=== PATIENT | male | born 1950 | race Caucasian/White ===

== ENCOUNTER 2025-05-15 20:53 | Observation (INO) | payer MEDICARE, SELFPAY ==
--- NOTE | ~2025-05-15 | XR_ITS ---
EXAMINATION: XR CHEST 1 VIEW HISTORY: MRI screening COMPARISON: There are no prior studies available for comparison. FINDINGS: A single AP portable view of the chest performed at 8:45 AM is submitted. There is linear scarring in the left lower lobe. The lungs are otherwise clear. There is no pleural effusion, pneumothorax, or pulmonary vascular congestion. The heart is normal in size. The bones are intact. No radiopaque foreign body is identified. XR/XR chest 1V IMPRESSION: Left lower lobe scarring. Electronically signed by: Wilman Akers MD 05/16/2025 08:57 AM [facility]
--- NOTE | ~2025-05-15 | US_ITS ---
EXAMINATION: US EXTRACRANIAL CAROTID DUPLEX, BILATERAL CLINICAL INFORMATION: Change in mental status. Hypertension. TIA. COMPARISON: None available. TECHNIQUE: Real-time ultrasound and Doppler techniques (integrating B-mode 2-D vascular images, Doppler spectral analysis and color-flow Doppler imaging) were utilized to interrogate the extracranial carotid arteries, the vertebral arteries and proximal subclavian arteries bilaterally. The degree of stenosis is determined by criteria similar to NASCET. FINDINGS: Right Side: 1. There is irregular shaped moderate-sized atherosclerotic plaque seen in the bifurcation/proximal ICA region. 2. The common carotid artery PSV proximally is 82 cm/s and distally negative for cm/s. 3. The proximal internal carotid artery velocities are 116 cm/s systolic and 34 cm/s diastolic. 4. The proximal external carotid artery PSV is 98 cm/s. 5. The vertebral artery shows antegrade flow. 6. The subclavian artery waveforms are normal. ICA/CCA ratio: 1.2. Left Side: 1. There is small atherosclerotic plaque seen in the bifurcation/proximal ICA region. 2. The common carotid artery PSV proximally is 97 cm/s and distally 92 cm/s. 3. The proximal internal carotid artery velocities are 62 cm/s systolic and 14 cm/s diastolic. Tortuosity. 4. The proximal external carotid artery PSV is 98 cm/s. 5. The vertebral artery shows antegrade flow. 6. The subclavian artery waveforms are normal. ICA/CCA ratio: 0.6. US/US carotid duplex BI IMPRESSION: 1. RIGHT: Irregular shaped moderate size plaque representing 0-49% stenosis by ultrasound criteria. 2. LEFT: Small plaque representing 0-49% stenosis by ultrasound criteria. Electronically signed by: Clemente Arboleda MD 05/17/2025 06:46 AM EST
--- NOTE | ~2025-05-15 | CT_ITS ---
CLINICAL HISTORY: acute confusion CT head without contrast Comparison: None provided Findings: No intra-axial mass, midline shift, hydrocephalus, or acute hemorrhage. Parenchymal atrophy, white matter disease, and chronic appearing left thalamic lacunar infarct. There is no sinus or mastoid fluid. The orbits are within normal limits. No skull fracture. Leftward nasal septum deviation. IMPRESSION: 1. No acute intracranial findings. This document has been electronically signed by: Saravanan Ashraf MD on 05/15/2025 21:30:04
--- NOTE | 2025-05-15 20:58 | ECG_ITS ---
Test Reason : STROKE Blood Pressure : */* mmHG Vent. Rate : 99 BPM Atrial Rate : 99 BPM P-R Int : 218 ms QRS Dur : 114 ms QT Int : 344 ms P-R-T Axes : 29 -5 -1 degrees QTcB Int : 441 ms Sinus rhythm with 1st degree A-V block with Premature supraventricular complexes Right bundle branch block Abnormal ECG When compared with ECG of 28-Jul-2006 15:38, MANUAL COMPARISON REQUIRED PREVIOUS ECG IS INCOMPATIBLE Referred By: Dagoberto Fernandes Electronically Signed By: Alberto Guzmán
[2025-05-15 21:00] VITALS: BP 188/100; PULSE 70; O2SAT 98
--- NOTE | 2025-05-15 21:02 | ED_ITS ---
HPI - General Adult General Chief complaint: Stroke Stated complaint: Stroke alert Time Seen by Provider: 05/15/25 20:58 History of Present Illness ED Provider: Dena ALEXANDRE narrative: The patient is a 74-year-old male with a history of hypertension on lisinopril. He was home alone watching football when he started to feel as if something was not quite right. He thought that perhaps he was confused. He does not really remember exactly what happened but it seems as though he ultimately called an ambulance. He does not remember calling the ambulance. Paramedics arrived and found him awake and confused. He was not able to explain exactly what was happening. His was not home. His blood pressure was somewhat high but otherwise he did not seem acutely ill except that he kept asking the paramedics repetitive questions. The paramedics brought him to the hospital for further evaluation. The patient denies headache. He denies chest pain. He thinks he was home watching a football game when perhaps he started to feel that something was wrong and perhaps he called 911 but he does not really remember the specifics of this episode. Aside from denying any pain in any part of his body or any other symptoms currently he is not able to offer much additional history. The patient is retired. He worked for 30 years for the [employer]. He is and lives with his of 6 years. He has no children. His says that 2 years ago she realized that he occasionally used crack cocaine but she says that he has stopped doing this. Related Data Allergies Allergy/AdvReac Type Severity Reaction Status Date / Time Penicillins (PENICILLINS) Allergy Unknown UNKNOWN Verified 05/15/25 21:14 Review of Systems 2 Review of Systems: Yes all other systems are reviewed and are negative [facility] Social History Social History Advance Directives: No Advance Directives Information Provided: Yes Do you have a plan to hurt others: No Plan Physical Exam ED Vital Signs: Vital Signs - 24 hr 05/15/25 21:08 05/15/25 21:12 05/15/25 21:23 Temperature 97.7 F 97.7 F 97.7 F Pulse Rate 103 H 98 91 Respiratory Rate 12 14 11 L Blood Pressure 185/101 H 185/101 H 180/100 H Pulse Oximetry 98 98 98 Oxygen Delivery Method Room Air Room Air BMI result Body Mass Index 22.9 Const Other: The patient is a 74-year-old male who was awake and alert he is pleasant and cooperative. He has not appear in acute distress. [facility] Other: The face is symmetrical. ?Mucous membranes moist. Eyes General: appearance normal, both eyes and all related structures Visual Crespo: normal visual crespo by confrontation Alignment and Position: alignment normal Eyelids: Yes eyelids normal Conjunctivae: conjunctivae normal Sclerae: sclerae normal Pupils: Equal, round and reactive pupils present EOM: EOMs intact bilaterally Neck Neck: Yes normal visual inspection, Yes full ROM and Yes no JVD Resp Effort & Inspection: normal respiratory effort Auscultation: clear to auscultation bilaterally Cardio Rate: regular rate Rhythm: regular rhythm Heart sounds: S1 normal heart sound present and S2 normal heart sound present GI Other: Abdomen is soft and nontender Skin Other: The skin is dry and unremarkable Neuro Other: The patient is awake and alert, pleasant and cooperative. He is not well oriented however. He could not tell me the correct month or year or president. He does know that he has at [facility] Emergency room. He seems to have poor memory of recent events. He does not remember exactly why he came to the hospital. Pupils are round equal, extraocular movements are intact, visual crespo are intact to confrontation, the face is symmetrical, tongue is midline, speech is without aphasia or dysarthria. He has 5/5 strength in all extremities. No pronator drift. Finger-nose is normal. Gait is normal. NIH stroke scale NIH stroke scale NIH stroke scale was 1 because he could not tell me the correct month. Cranial nerves: Yes Equal, round and reactive pupils present Extrem Other: There is no calf swelling or tenderness. No asymmetry. No peripheral edema. Medications Administered Generic Name Dose Route Start Last Admin Trade Name Freq PRN Reason Stop Dose Admin Lactated Ringer's 1,000 mls @ 999 mls/hr 05/15/25 22:15 05/15/25 22:33 Lr IV 05/15/25 23:15 999 mls/hr .Q1H1M [facility] Administration Medical Decision Making Medical Decision Making [facility] Narrative: The patient is a 74-year-old male who comes to the hospital from home by ambulance. He was home alone and as far as I can tell he called the ambulance. He was watching a football game. Paramedics report that the patient seemed to have a very poor memory and was asking repetitive questions. They did not find any focal findings on their exam. My initial impression was that this seems to be a case of transient global amnesia. Nevertheless he was sent for a stat head CT that is negative. The patient does not have any focal neurological deficits aside from initially being unable to tell me the correct month. While in the emergency room he has demonstrated an inability to form new memories. At 1st he knew that he had arrived by ambulance but later he could not tell me how he got to the hospital. Additionally initially he has been very impressed that 1 of the paramedics had had a very strong [place] accident. Later he could not remember anything about the paramedics that brought him here. Since transient global amnesia is often triggered by some kind of stressful event I speculate that perhaps there was a stressful moment in the football game that triggered this. In any event the patient does not seem to have findings that I would consider typical of his stroke and I do not feel the patient is a candidate for thrombolytic therapy. Additionally it is not exactly clear at what time his symptoms began since he was alone when all of this happened and his has been out of the house for several hours. At 1st we could not reach the patient's . Eventually she responded to 1 of our messages and called the emergency room. She came to the emergency room. The patient is still showing signs of difficulty with memory. Therefore I feel the patient should be hospitalized until his memory is clearly doing better. Lab Data 05/15/25 20:55 05/15/25 20:55 Labs: Lab Results 05/15/25 05/15/25 05/15/25 Range/Units 20:55 20:56 21:30 WBC 8.5 (4.8-10.8) X10*3/uL RBC 4.67 (4.60-5.80) X10*6/uL Hgb 14.2 (14.0-18.0) g/dl Hct 40.7 L (42.0-52.0) % MCV 87.2 (80.0-98.0) fL MCH 30.4 (27.0-33.0) pg MCHC 34.9 (31.0-36.0) g/dl RDW 12.5 (11.0-16.0) % Plt Count 209 (160-400) X10*3/uL MPV 9.6 (9.4-12.4) fL Immature Gran % (Auto) 0.2 (0.0-0.4) % Neut % (Auto) 80.5 H (45-73) % Lymph % (Auto) 13.4 L (20-40) % [place] % (Auto) 5.3 (2-11) % Eos % (Auto) 0.2 (0-4) % Baso % (Auto) 0.4 (0-2) % Lymph # (Auto) 1.1 L (1.2-4.9) X10*3/uL [place] # (Auto) 0.5 (0.1-1.2) X10*3/uL Eos # (Auto) 0.0 (0.0-0.4) X10*3/uL Baso # (Auto) 0.0 (0.0-0.2) X10*3/uL Abs Immat Gran (auto) 0.02 (0.00-0.03) X10*3/uL Absolute Neuts (auto) 6.9 (2.0-8.3) x10*3/uL Absolute Nucleated RBC 0.000 (0.0-0.012) X10*3/uL Nucleated RBC % (auto) 0.0 (0.0-0.2) /100WBC PT 11.8 (10.9-12.4) SEC INR 1.0 (0.9-1.1) Sodium 140 (135-145) mmol/L Potassium 4.1 (3.3-5.1) mmol/L Chloride 111 H (96-108) mmol/L Carbon Dioxide 19 L (22-29) mmol/L Anion Gap 14 (12-20) BUN 23 H (9-16) mg/dL Creatinine 1.16 (0.5-1.4) mg/dL Estim Creat Clear Calc 60.6 Estimated GFR > 60 POC Glucose 100 (60-115) mg/dL Random Glucose 107 (60-115) mg/dL Calcium 8.9 (8.4-10.2) mg/dL Troponin I High Sens < 2.7 (<3.5-35.0) ng/L Triglycerides 68 (<150) mg/dL Cholesterol 186 (<200) mg/dL LDL Cholesterol, Calc 119 H (<100) mg/dL HDL Cholesterol 54 (>40) mg/dL Ethyl Alcohol < 10 mg/dL Critical Care Time Critical Care Time Critical Care Time: Yes Total Critical Care Time: 35 Attestation: The patient was critically ill with a high probability of imminent or life- threatening deterioration. ?I spent greater than 30 minutes of discontinuous time evaluating the patient, delivering critical care at the bedside, discussing evaluating data with consultants. ?Critical care time does not include time spent performing separately billable procedures or teaching. ?Time spent performing critical care with 35 minutes. Discharge Plan Discharge Clinical Impression: Transient global amnesia Patient Disposition: Admitted As Inpatient Print Language: Mosotho
--- NOTE | 2025-05-15 21:02 | PC.NURSE ---
2053 Pt arrives by EMS. at bedside for eval. 2054 PTT and labs obtained. [address] after MD eval. 2102 CT complete, pt moved to bed 9 for triage.
[2025-05-15 21:04] LABS: Glucose, Whole Blood 100 mg/dL (60-115)
[2025-05-15 21:08] VITALS: BP 185/101; PULSE 103; RESP 12; TEMP 36.5; O2SAT 98; BMI 22.9
[2025-05-15 21:08] LABS: MANUAL DIFF FLAG NO
[2025-05-15 21:10] LABS: Hematocrit 40.7 % (42.0-52.0); Hemoglobin 14.2 g/dl (14.0-18.0); Imm Gran Abs Auto 0.02 X10*3/uL (0.00-0.03); Imm Gran Pct Auto 0.2 % (0.0-0.4); Lymphocytes Absolute Auto 1.1 X10*3/uL (1.2-4.9); Mean Corpuscular HGB Conc 34.9 g/dl (31.0-36.0); Mean Corpuscular Hemoglobin 30.4 pg (27.0-33.0); Mean Corpuscular Volume 87.2 fL (80.0-98.0); NRBC Abs Auto 0.000 X10*3/uL (0.0-0.012); NRBC Pct Auto 0.0 /100WBC (0.0-0.2); Platelet Count 209 X10*3/uL (160-400); Red Blood Count 4.67 X10*6/uL (4.60-5.80); White Blood Count 8.5 X10*3/uL (4.8-10.8)
--- NOTE | 2025-05-15 21:10 | PC.NURSE ---
returned from CT alert and talking at this time
[2025-05-15 21:12] VITALS: BP 185/101; PULSE 98; RESP 14; TEMP 36.5; O2SAT 98; BMI 22.9
[2025-05-15 21:23] VITALS: BP 180/100; PULSE 91; RESP 11; TEMP 36.5; O2SAT 98
[2025-05-15 21:30] LABS: Anion Gap 14 (12-20); Blood Urea Nitrogen 23 mg/dL (9-16); Calcium 8.9 mg/dL (8.4-10.2); Carbon Dioxide 19 mmol/L (22-29); Chloride 111 mmol/L (96-108); Cholesterol 186 mg/dL (<200); Creatinine Clr Calc Pharmacy 60.6; Estimated Glomerular Filt Rate > 60; HDL Cholesterol 54 mg/dL (>40); Potassium 4.1 mmol/L (3.3-5.1); Sodium 140 mmol/L (135-145); Triglycerides 68 mg/dL (<150)
[2025-05-15 21:44] LABS: INTERNATIONAL NORM RATIO 1.0 (0.9-1.1); Prothrombin Time 11.8 SEC (10.9-12.4)
[2025-05-15 21:45] LABS: Troponin-I High Sensitivity < 2.7 ng/L (<3.5-35.0)
[2025-05-15 21:54] LABS: Stroke Lab Use COMPLETE
--- OUTSIDE RECORDS SUMMARY | 2025-05-15 22:00 | XMS_ITS | Clinical Summary ---
Author Organization [facility], Address [address] [place] [address] Phone Care Team Providers Care Store Management Trainee Name Role Phone Nabor Alonso MD Primary Care Provider [phone] Allergies Active Allergy Reactions Criticality Noted Date Comments Penicillins 10/23/2020 Medications Omeprazole 20 MG tablet delayed-release Comments: Filled Date: May 14 2017 12:00AM Patient Notes: TAKE ONE CAPSULE BY MOUTH EVERY DAY *INSURANCE COVERS 21 FOR 21 Duration: 21 7 Active cholecalciferol (VITAMIN D-3) 1.25 MG (77319 UT) capsule Take 50,000 Units by mouth every 28 (twenty-eight) days Active valACYclovir (VALTREX) 1 g tablet Take 1,000 mg by mouth 2 (two) times a day if needed (x 3 days for herpetic outbreak) Active sildenafil (VIAGRA) 50 MG tablet Take 50 mg by mouth 1 (one) time each day if needed for erectile dysfunction Active lisinopril 5 MG tablet TAKE 1 TABLET BY MOUTH DAILY 90 tablet 3 4 Active ergocalciferol (Drisdol) 1.25 MG (31257 UT) capsule Take 1 capsule (50,000 Units total) by mouth 1 (one) time per week 4 capsule 5 5 Active ergocalciferol 1.25 MG (23078 UT) capsule Take 1 capsule (50,000 Units total) by mouth 1 (one) time per week 12 capsule 3 5 03/15/20 26 Active Active Problems Problem Noted Date Diagnosed Date Vitamin D deficiency, not otherwise specified Creatine kinase level above reference range 08/15 Renal osteodystrophy 05/08/2021 Stage 3a chronic kidney disease 04/25/2020 Overview (07/17/2020): Update for Diagnosis Load Cyst of kidney 10/21/2019 Hypertensive disorder 10/18/2019 Resolved Problems Problem Noted Date Diagnosed Date Resolved Date 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 05/08/2021 Polycystic kidney disease, adult type 10/18/2019 05/08/2021 Encounters Date Type Department Care Team Description 04/05/2025 2:00 PM EDT Office Visit [facility] [address] [place] [id number] Jose Dickinson MD Stage 3a chronic kidney disease (HCC) (Primary Dx); Hypertensive disorder; Vitamin D deficiency, not otherwise specified 03/18/2025 Orders Only [facility] [address] [place] [phone] Tisha Bush Vitamin D deficiency, not otherwise specified (Primary Dx); Stage 3a chronic kidney disease (HCC) 03/15/2025 Refill [facility] [address] [place] [address] Jose Dickinson MD from Last 3 Months Immunizations Immunization Administration Dates Next Due Influenza, Unspecified 06/25/2021,2019,05/27/2018,04/25/2017 ,07/13/2015,07/03/2014 Pfizer SARS-COV-2 06/04/2021,10/22/2020,10/02/19 21 Pneumococcal Conjugate 13-Valent 08/26/2017 Pneumococcal Polysaccharide 06/25/2021, 3 Tdap 02/09/2013,02/01/2011 Tetanus Toxoid, Unspecified 07/14/2001 Family History Medical History Relation Comments Kidney disease Father cousin Hypertension Mother grandfather Stroke Mother grandfather Relation Status Comments Father Mother Social History Tobacco Use Types Packs/Day Years Used Date Smoking Tobacco: Every Day Cigarettes Alcohol Use Standard Drinks/Week Comments Yes 0 (1 standard drink = 0.6 oz pure alcohol) Alcoholic Drinks/day: Occasional social drink Sex and Gender Information Value Date Recorded Sex Assigned at Not on file Legal Sex Male 4:34 PM EST Gender Identity Not on file Sexual Orientation Not on file Last Filed Vital Signs Vital Sign Reading Time Taken Comments Blood Pressure 110/65 04/20/2019 12:00 PM EDT Pulse 74 04/20/2019 12:00 PM EDT Temperature - - Respiratory Rate 16 04/20/2019 12:00 PM EDT Oxygen Saturation - - Inhaled Oxygen Concentration - - Weight 90.3 kg (199 lb) 04/20/2019 12:00 PM EDT Height 180.3 cm (5' 11 ) 04/20/2019 12:00 PM EDT Body Mass Index 27.75 04/20/2019 12:00 PM EDT Plan of Treatment Upcoming Encounters Date Type Department Care Team (Late st Contact Info) Description 10/04/2025 2:00 PM EDT Office Visit [facility] [place] [facility] [address] [place] [address] Jose Dickinson MD [address] [place] [phone] Health Maintenance Due Date Last Done Comments Colorectal Cancer Screening: Annual FOBT 2001 Colorectal Cancer Screening: Colonoscopy 2001 Colorectal Cancer Screening: Sigmoidoscopy 2001 Influenza Vaccine (#1) 2025 , 05/23/2020, 05/27/2018, Additional history exists Pneumococcal Vaccine: 50+ Years Completed 06/25/2021, 08/26/2017, 02/09/2013 Pneumococcal Vaccine: Peds (0 to 5 Years) and At-Risk Patients (6 to 49 Years) Discontinued 06/25/2021, 08/26/2017, 02/09/2013 Hepatitis B Vaccine Aged Out No longe r eligible based on patient's age to complete this topic Procedures Procedure Name Priority Date/Time Associated Diagnosis Comments VITAMIN D 25 HYDROXY Routine 03/30/2025 7:42 AM EDT Vitamin D deficiency, not otherwise specified PROTEIN / CREATININE RATIO, URINE Routine 03/30/2025 7:42 AM EDT Stage 3a chronic kidney disease (HCC) URINALYSIS WITH MICROSCOPIC Routine 03/30/2025 7:42 AM EDT Stage 3a chronic kidney disease (HCC) RENAL FUNCTION PANEL Routine 03/30/2025 7:42 AM EDT Stage 3a chronic kidney disease (HCC) CBC AND DIFFERENTIAL Routine 03/30/2025 7:42 AM EDT Stage 3a chronic kidney disease (HCC) MICROSCOPIC EXAMINATION - DO NOT USE Routine 03/30/2025 7:42 AM EDT from Last 3 Months Results * Microscopic Examination (03/30/2025 7:42 AM EDT) WBC, Urine None seen 0 - 5 /hpf [facility] RBC, Urine None seen 0 - 2 /hpf [facility] Squamous Epithelial, Urine None seen 0 - 10 /hpf [facility] Casts None seen None seen /lpf [facility] Bacteria, Urine None seen None seen/Few [facility] 03/30/2025 7:42 AM EDT 03/30/2025 us Jose Dickinson MD LAB MICROBIOLOGY - GENERAL ORDER ISMAEL Final Result [facility] [address] [place] [address] * Urine Protein / creatinine ratio (03/30/2025 7:42 AM EDT) Creatinine, Ur 100.5 Not Estab. mg/dL [facility] Protein, Ur 9.6 Not Estab. mg/dL [facility] Urine Protein/Creatin ine Ratio 96 0 - 200 mg/g creat [facility] Urine Urine specimen obtained by clean catch procedure / Unknown 03/30/2025 7:42 AM EDT 03/30/2025 us Jose Dickinson MD LAB URINE ORDERABLES Final Resul t Performing Organization Address City/[facility]/ZIP Co de Phone Number [facility] [address] [place] [address] * Vitamin D 25 hydroxy (03/30/2025 7:42 AM EDT) Vitamin D, 25-OH, Total 59.2 30.0 - 100.0 ng/mL [facility] Comment: Vitamin D deficiency has been defined by the [place] of Medicine and an Endocrine Society practice guideline as a level of serum 25-OH vitamin D less than 20 ng/mL (1,2). The Endocrine Society went on to further define vitamin D insufficiency as a level between 21 and 29 ng/mL (2). 1. IOM ([place] of Medicine). 2010. Dietary reference intakes for calcium and D. [place]: The National Academies Press. 2. Mary Anne MF, [place], Xu HYDE, et al. Evaluation, treatment, and prevention of vitamin D deficiency: an Endocrine Society clinical practice guideline. JCEM. 2010; 96(7):1911-30. Blood Venous blood / Unknown 03/30/2025 7:42 AM EDT 03/30/2025 us Jose Dickinson MD LAB BLOOD ORDERABLES Final Resul t [facility] [address] [place] [address] * Urinalysis with microscopic (03/30/2025 7:42 AM EDT) Specific [place], Urine 1.017 1.005 - 1.030 [facility] [phone] pH Urine 6.0 5.0 - 7.5 [facility] Color, Urine Yellow Yellow [facility] [phone] Appearance Urine Clear Clear [facility] WBC Esterase Urine Negative Negative [facility] Protein, Ur Negative Negative/Tra ce [facility] Glucose, Ur Negative Negative [facility] Ketones, Urine Negative Negative [facility] Blood Urine Negative Negative [facility] Bilirubin Urine Negative Negative [facility] Urobilinogen Urine 0.2 0.2 - 1.0 mg/dL [facility] [phone] Nitrite, Urine Negative Negative [facility] [phone] Microscopic Examination Comment [facility] Comment:Microscopic follows if indicated. Other Microsc. Observations See below: [facility] Comment:Microscopic was elo cated and was performed. Urine Urine specimen obtained by clean catch procedure / Unknown 03/30/2025 7:42 AM EDT 03/30/2025 us Jose Dickinson MD LAB URINE ORDERABLES Final Resul t [facility] [address] [place] [address] * CBC and differential (03/30/2025 7:42 AM EDT) WBC 5.3 3.4 - 10.8 x10E3/uL [facility] RBC 4.82 4.14 - 5.80 x10E6/uL [facility] Hemoglobin 14.9 13.0 - 17.7 g/dL [facility] Hematocrit 44.8 37.5 - 51.0 % [facility] MCV 93 79 - 97 fL [facility] MCH 30.9 26.6 - 33.0 pg [facility] MCHC 33.3 31.5 - 35.7 g/dL [facility] RDW 13.1 11.6 - 15.4 % [facility] Platelets 230 150 - 450 x10E3/uL [facility] Neutrophils Relative 65 Not Estab. % [facility] Lymphocytes Relative 25 Not Estab. % [facility] Monocytes 7 Not Estab. % [facility] Eosinophils Relative 2 Not Estab. % [facility] Basophils Relative 1 Not Estab. % [facility] Neutrophils Absolute 3.5 1.4 - 7.0 x10E3/uL [facility] Lymphocytes Absolute 1.3 0.7 - 3.1 x10E3/uL [facility] Monocytes Absolute 0.4 0.1 - 0.9 x10E3/uL [facility] Eosinophils Absolute 0.1 0.0 - 0.4 x10E3/uL [facility] Basophils Absolute 0.0 0.0 - 0.2 x10E3/uL [facility] Immature Granulocytes 0 Not Estab. % [facility] Immature Grans (Absolute) 0.0 0.0 - 0.1 x10E3/uL [facility] Blood Venous blood / Unknown 03/30/2025 7:42 AM EDT 03/30/2025 us Jose Dickinson MD LAB BLOOD ORDERABLES Final Resul t [facility] [address] [place] [address] * Renal function panel (03/30/2025 7:42 AM EDT) Glucose 83 70 - 99 mg/dL [facility] BUN 20 8 - 27 mg/dL [facility] Creatinine 1.17 0.76 - 1.27 mg/dL [facility] eGFR CKD-EPI CR 2020 66 >59 mL/min/1.7 3 [facility] BUN/Creatinine Ratio 17 10 - 24 [facility] Sodium 139 134 - 144 mmol/L [facility] Potassium 4.2 3.5 - 5.2 mmol/L [facility] Chloride 102 96 - 106 mmol/L [facility] Bicarbonate (CO2) 20 20 - 29 mmol/L [facility] Calcium 9.1 8.6 - 10.2 mg/dL [facility] Albumin 4.5 3.8 - 4.8 g/dL [facility] Phosphorus 3.4 2.8 - 4.1 mg/dL [facility] Blood Venous blood / Unknown 03/30/2025 7:42 AM EDT 03/30/2025 us Jose Dickinson MD LAB BLOOD ORDERABLES Final Resul t [facility] [address] [place] [address] from Last 3 Months Insurance Medicare RR Care Teams Store Management Trainee Relationship Specialty Start Date End Date Nabor Alonso MD LIZETH BIGGS INSTRUMENT AND ELECTRICAL TECHNICIAN [address] [place] [address] LIZETH BIGGS [place] PCP - General 05/18/19
--- OUTSIDE RECORDS SUMMARY | 2025-05-15 22:00 | XMS_ITS | Encounter Summary ---
Author Organization [facility] Address [address] [place] [address] Phone Care Team Providers Care Geophysical Party Chief Name Role Phone Nabor Alonso MD Primary Care Provider [phone] Encounter Details Date Type Department Care Team (Late Contact Info) Description 10/04/2024 Documentation Only [facility] [address] [place] [address] Elyssa Bolivar [address] [place] [phone] Social History Tobacco Use Types Packs/Day Years Used Date Smoking Tobacco: Every Day Cigarettes Alcohol Use Standard Drinks/Week Comments Yes 0 (1 standard drink = 0.6 oz pure alcohol) Alcoholic Drinks/day: Occasional social drink Sex and Gender Information Value Date Recorded Sex Assigned at Not on file Legal Sex Male 4:34 PM EST Gender Identity Not on file Sexual Orientation Not on file documented as of this encounter Plan of Treatment Upcoming Encounters Date Type Department Care Team (Late st Contact Info) Description 10/04/2025 2:00 PM EDT Office Visit [facility] [address] [address] Jose Dickinson MD [address] [place] [address] [place] [address] documented as of this encounter Visit Diagnoses Not on filedocumented in this encounter Care Teams Geophysical Party Chief Relationship Specialty Start Date End Date Nabor Alonso MD [employer] TECHNICIAN [address] [place] [address] [place] [address] PCP - General 05/18/19 documented as of this encounter
--- OUTSIDE RECORDS SUMMARY | 2025-05-15 22:00 | XMS_ITS | Encounter Summary ---
Author Organization [facility] Address [address] [place] [address] Phone Care Team Providers Care Bed And Breakfast Operator Name Role Phone Nabor Alonso MD Primary Care Provider [phone] Encounter Details Date Type Department Care Team (Late Contact Info) Description 10/04/2024 Documentation Only [facility] [address] [place] [address] Elyssa Bolivar [address] [place] [phone] Social History Tobacco Use Types Packs/Day [...] Office Visit [facility] [address] [address] Jose Dickinson MD [address] [place] [address] [place] [address] documented as of this encounter Visit Diagnoses Not on filedocumented in this encounter Care Teams Bed And Breakfast Operator Relationship Specialty Start Date End Date Nabor Alonso MD [employer] DEVELOPER [address] [place] [address] [place] [address] PCP - General 05/18/19 documented as of this encounter
--- OUTSIDE RECORDS SUMMARY | 2025-05-15 22:00 | XMS_ITS | Encounter Summary ---
Author Organization [facility] Address [address] [place] [address] Phone Care Team Providers Care Etcher Printed Circuit Boards Name Role Phone Nabor Alonso MD Primary Care Provider [phone] Encounter Details Date Type Department Care Team (Late Contact Info) Description 10/04/2024 Documentation Only [facility] [address] [place] [address] Elyssa Bolivar [address] [place] [id number] Social History Tobacco Use Types Packs/Day [...] Office Visit [facility] [address] [address] Jose Dickinson MD [address] [place] [address] [place] [address] documented as of this encounter Visit Diagnoses Not on filedocumented in this encounter Care Teams Etcher Printed Circuit Boards Relationship Specialty Start Date End Date Nabor Alonso MD [facility] [address] [place] [address] [place] [address] PCP - General 05/18/19 documented as of this encounter
--- OUTSIDE RECORDS SUMMARY | 2025-05-15 22:00 | XMS_ITS | Data Portability ---
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 Examination of the oropharynx demonstrates pink moist mucosa without erythema, exudate, tonsillar enlargement or mass. Given the patient's history of GERD and Combs's esophagus, patient's cough and dry throat likely due to LPR. Recommended trialling an increased dose of Omeprazole 40mg and if symptoms are relieved, discussed continuing to follow up with GI. Patient will follow up in office in 2 months. franky Not available 04/06/2025 14:25:00 Plan of Treatment Reminders Order Date Submit Date Provider Last Modified By Organization Details Last Modified Time Details Appointments New Patient 30 2024 01:15P Deo HADLEY PA-C Not available Not available Not available Lab None recorded. Referral None recorded. Procedures None recorded. Surgeries None recorded. Imaging None recorded. Medication Orders omeprazol e 40 mg capsule,d elayed release 2024 025 [facility] [id number], [address] [place] [address], [address], 04/06/2025 14:25:41 Patient TargetsNo targets recorded. Patient InstructionsNo instructions recorded. Reason for Referral None Reported. Problems Name Problem SNOMED Code Status Onset Date Resolution Date Notes Provider Name and Address Organization Details Recorded Time Gastroesophage al reflux disease without esophagitis 128747174 Active 2024 SALONI HADLEY PA-C [address] [place] [address], [phone] [place] [address] [facility] 14:25:12 Problem Notes None recorded. Medical Equipment None Reported. Medications Name Sig Start Date Stop Date Status Note LastModified by Organization Details LastModified Time valacyclovir 1 gram tablet TAKE 1 TABLET BY MOUTH TWICE DAILY FOR 3 DAYS NEEDED FOR OUTBREAKS active Not Available Not Available No t Available omeprazole 40 mg capsule,delay ed release 1 capsule daily 1 hour before first meal 2024 active Not Available Not Available Not Avai lable Vitals Date Recorded Body height Body mass index (BMI) Body weight Provider Name and Address Organization Details Last Updated DateTime 04/06/2025 180.34 cm 22.3 kg/m2 67209.78 g Petra Birmingham [facility] 04/06/2025 13:40:45 Social History None recorded. Functional Status None recorded. Mental Status None recorded. Family History Nothing Reported. Medical History No medical history recorded. Past Encounters Encounter ID Performer Location Encounter Start Date Encounter Closed Date Diagnosis/Indication Diagnosis SNOMED-CT Code Diagnosis ICD10 Code Diagnosis IMO Codes Diagnosis Note [id number] SALONI HADLEY PA-C [facility] [address] [address] 04/06/2025 13:28:50 04/06/2025 14:06:15 Gastroesophageal reflux disease without esophagitis 284650484 K21.9 [id number] Health Concerns Section Related Observation LastModified by Organization Detai ls LastModified Time None Recorded Concern Status LastModified by Organization Details LastModified Time None Recorded Advance Directives Directive None Recorded Payers Insurance Date Sequence Insurance Name Policy Number Policy Abdi Covered Member ID Abdi Member ID Guarantor Name 04/06/2025 Maria Del Rosario [employer] - MEDICARE-[address] LONG TERM BOARD (MEDICARE) Lico Munoz [id number] Lico Munoz Notes Date Note Type Note Provider Name and Address Organization Details Recorded Time 04/06/2025 text/html ROS as noted in the HPI 74 year old male with a history of GERD and Combs's esophagus presents for evaluation of a dry cough. He reports it has been 3 years and has recently gotten worse. States he has to cough when eating powdery or grainy foods and his throat feels irritated when drinking cold liquids. Denies odynophagia, dysphagia, mass sensation, or unintentional weight loss. He takes Omeprazole 20mg daily and denies recent reflux symptoms, only when he misses his dose. Patient underwent an upper endoscopy recently and was diagnosed with Combs's esophagus, and has a follow up endoscopy next year. Distant history of tobacco use but quit 25 years ago. SALONI HADLEY PA-C 100 [facility] [address], [place], [address], [place] [facility] 04/06/2025 14:25:48
--- OUTSIDE RECORDS SUMMARY | 2025-05-15 22:00 | XMS_ITS | Encounter Summary ---
Author Organization [facility] Address [address] [place] [address] Phone Care Team Providers Care Supervisor Cell Efficiency Name Role Phone Nabor Alonso MD Primary Care Provider [phone] Encounter Details Date Type Department Care Team (Late st Contact Info) Description 09/04/2022 Documentation Only [facility] [address] [place] [address] Jose Dickinson MD [address] [place] [address] [place] [address] Social History Tobacco Use Types Packs/Day Years [...] Office Visit [facility] [address] [place] [address] Jose Dickinson MD [address] [place] [address] [place] [address] documented as of this encounter Visit Diagnoses Not on filedocumented in this encounter Care Teams Supervisor Cell Efficiency Relationship Specialty Start Date End Date Nabor Alonso MD [employer] CHEMICAL TECHNICIAN [address] [place] [address] [place] PCP - General 05/18/19 documented as of this encounter
[2025-05-15] MEDS: Lactated Ringers 1,000 ML 999 ML IV (22:33)
--- NOTE | 2025-05-15 23:15 | PM.IMHP ---
History of Present Illness Date of Service: 05/15/25 Attending physician on admission: Jeane Donald Chief Complaint: osmar De Dios is a 74 yo male with a pmhx significant for HTN on lisinopril, who presented to the ED for an unknown reason. the pt reports that he was stressed watching football game and suddenly felt like something was wrong blood can not describe what it was. He denies any chest pain, shortness of breath, nausea, vomiting, headache, weakness, fever, chills, urinary symptoms or abdominal symptoms. When EMS arrived his blood pressure was slightly elevated and he was repetitive and forgetful. The patient remains forgetful and repetitive. The patient's reports that he is talking much more quickly than usual but does not have any slurred speech. She also reported that he has a history of crack cocaine use, none recently to her knowledge. He also drinks alcohol occasionally but has not consumed any today. His mother and brother have a strong history of TIAs and CVAs, both passed after CVAs. Review of Systems Constitutional: Constitutional: Denies body ache(s), Denies chills, Denies fatigue, Denies fever(s) and Denies headache(s) Eyes: Eyes: Denies change in vision ENT: Denies headache(s), Denies nasal congestion and Denies sore throat Cardiovascular: Cardiovascular: Denies chest pain, Denies rapid heart rate, Denies leg edema, Denies lightheadedness and Denies dyspnea Respiratory: Respiratory: Denies chest congestion, Denies cough, Denies dyspnea and Denies wheezing Gastrointestinal: Gastrointestinal: Denies abdominal pain, Denies nausea and Denies vomiting Genitourinary: Genitourinary: Denies dysuria, Denies urinary frequency and Denies urinary urgency Musculoskeletal: Musculoskeletal: Denies back pain and Denies myalgias Integumentary/Breasts: Skin/Breast: Denies rash Neurologic: Reports as per HPI and Denies headache(s) Psychiatric: Psychiatric: Reports as per HPI Endocrine: Endocrine: Denies fatigue Hematologic/Lymphatic: Hematologic/Lymphatic: Denies easy bleeding and Denies easy bruising Allergic/Immunologic: Allergic/Immunologic: Denies wheezing [facility] Medical History (Updated 05/16/25 @ 00:42 by Holly Roth PA-C) HTN (hypertension) Functional capacity: independent ambulation Social History Advance Directives: No Advance Directives Information Provided: Yes Do you have a plan to hurt others: No Plan Narrative: Social occasional alcohol, no smoking. History of crack cocaine use Meds Allergies Allergy/AdvReac Type Severity Reaction Status Date / Time Penicillins (PENICILLINS) Allergy Unknown UNKNOWN Verified 05/15/25 21:14 Active Medications: Current Medications Lactated Ringer's (Lr) 1,000 mls @ 999 mls/hr IV .Q1H1M NUVIA Stop: 05/15/25 23:15 Last Admin: 05/15/25 22:33 Dose: 999 mls/hr Physical Exam Vital Signs and Narrative: Vital Signs: Last Vital Signs Temp 97.7 F 05/15/25 21:23 Pulse 91 05/15/25 21:23 Resp 11 L 05/15/25 21:23 BP 180/100 H 05/15/25 21:23 Pulse Ox 98 05/15/25 21:23 O2 Del Method Room Air 05/15/25 21:23 BMI result Body Mass Index 22.9 General: AOx3, no acute distress. repetitive, ?slurred speech (baseline per ) Resp: CTA bilaterally CVS: S1, S2, RRR GI: +BS, NT, no distention Skin: Warm, dry Neuro: Cranial nerves II-XII grossly intact bilaterally. Motor grossly intact bilaterally. Sensation and strength intact bilateral upper and lower extremities equally. ?tongue deviates left Extremities: No pitting edema Psych: Appropriate affect Results Labs 05/15/25 20:55 05/15/25 20:55 Labs: Laboratory Results - last 24 hr 05/15/25 05/15/25 05/15/25 20:55 20:56 21:30 MCV 87.2 MCH 30.4 MCHC 34.9 RDW 12.5 Plt Count 209 MPV 9.6 Immature Gran % (Auto) 0.2 Neut % (Auto) 80.5 H Lymph % (Auto) 13.4 L [place] % (Auto) 5.3 Eos % (Auto) 0.2 Baso % (Auto) 0.4 Lymph # (Auto) 1.1 L [place] # (Auto) 0.5 Eos # (Auto) 0.0 Baso # (Auto) 0.0 Abs Immat Gran (auto) 0.02 Absolute Neuts (auto) 6.9 Absolute Nucleated RBC 0.000 Nucleated RBC % (auto) 0.0 PT 11.8 INR 1.0 Anion Gap 14 Estim Creat Clear Calc 60.6 Estimated GFR > 60 POC Glucose 100 Random Glucose 107 Calcium 8.9 Troponin I High Sens < 2.7 Triglycerides 68 Cholesterol 186 LDL Cholesterol, Calc 119 H HDL Cholesterol 54 Ethyl Alcohol < 10 Assessment and Plan (1) Transient global amnesia: Status: Acute Plan Pt is a 74 yo male with a pmhx significant for HTN on lisinopril, who presented to the ED for an unknown reason. pt is experiencing amnesia Transient global amnesia versus TIA versus CVA versus seizure - MRI brain with IV contrast - echo with bubble study - tele - LDL elevated, appreciate neuro input on statin - start ASA 81mg daily - EEG - neuro consult HTN - lisinopril med rec pending full code VTE prophy: lovenox pt with transient global amnesia vs TIA vs CVA vs seizure, requiring admission for observation, further evaluation and neuro consult. Quality Stroke Does the patient have a stroke diagnosis?: No VTE Prior VTE?: No VTE Risk Level:: Medical - moderate - high VTE Device Contraindication: Treatment Not Indicated VTE Drug Contraindication: N/A - Med Ordered
[2025-05-15 23:45] LABS: Appearance Urine Clear; Glucose Urine UA Negative (Negative); PH 5.5 (5.0-9.0); Specific Gravity - Urine 1.010 (1.005-1.025)
[2025-05-16] VITALS (8 sets, daily range): BP systolic 136–165; BP diastolic 73–91; PULSE 60–109; RESP 16–18; TEMP 36.6–37.2; O2SAT 94–98; BMI 22.7; BMI 22.8
--- NOTE | 2025-05-16 | EEG_ITS ---
Reason for Exam: Amnesia, confusion Roomed Performed: 1 st floor - [facility] History: History from consult note 74 years old man with hypertension in usual state of felt watching a game on television when he started feeling different. He said that it was foggy and dizzy and then something happened. After that his memory was fuzzy, he could remember some like talking to someone in the ambulance. Finally, when he felt normal he was in hospital. There was no report of any seizure or focal weakness. He denied any headache. He denied taking any new medicine or chemical or alcohol. Something like this has not happened before. His initial blood pressure was high in his head CT did not reveal any acute abnormality. There was no significant metabolic abnormality to explain his situation. Now he was feeling back to normal. There was no history of any significant headaches. Medication: Acetaminophen, ASA, Calcium, Enoxaparin sodium, magnesium hydroxide, melatonin, ondansetron, oxycodone, tramadol Technical description: Photic stimulation: completed Hyperventilation: omitted Behavioral state: pleasant, cooperative, aware of his surroundings and able to carry on conversation State of Consciousness: awake with brief drowsy Skull defect: no Sedation: no Handedness: Right Duration of study: 26 min 05 sec Description: This is a 16 channel EEG with an EKG lead. Patient is reported awake and drowsy during the tracing. Background EEG rhythm is 10-12 hertz 5-100 microvolt posteriorly and lower amplitude fast anteriorly. Photic stimulation produced a brief period of generalized slowing. No sharp waves or spikes were noted. No significant driving was noted. Hyperventilation was not performed. Cardiac lead did not reveal any significant abnormality. No definite sharp wave spikes or paroxysmal tendency noted. Impression: No significant abnormality noted on this EEG. JODI
[2025-05-16 00:08] LABS: Cannabinoid Screen Urine Not Detected (Not Detect)
[2025-05-16 03:51] LABS: MANUAL DIFF FLAG NO
[2025-05-16 03:52] LABS: Hematocrit 38.1 % (42.0-52.0); Hemoglobin 13.1 g/dl (14.0-18.0); Imm Gran Abs Auto 0.02 X10*3/uL (0.00-0.03); Imm Gran Pct Auto 0.3 % (0.0-0.4); Lymphocytes Absolute Auto 1.4 X10*3/uL (1.2-4.9); Mean Corpuscular HGB Conc 34.4 g/dl (31.0-36.0); Mean Corpuscular Hemoglobin 29.9 pg (27.0-33.0); Mean Corpuscular Volume 87.0 fL (80.0-98.0); NRBC Abs Auto 0.000 X10*3/uL (0.0-0.012); NRBC Pct Auto 0.0 /100WBC (0.0-0.2); Platelet Count 202 X10*3/uL (160-400); Red Blood Count 4.38 X10*6/uL (4.60-5.80); White Blood Count 6.2 X10*3/uL (4.8-10.8)
[2025-05-16 04:14] LABS: Anion Gap 11 (12-20); Blood Urea Nitrogen 19 mg/dL (9-16); Calcium 8.7 mg/dL (8.4-10.2); Carbon Dioxide 24 mmol/L (22-29); Chloride 110 mmol/L (96-108); Creatinine Clr Calc Pharmacy 70.3; Estimated Glomerular Filt Rate > 60; Potassium 4.2 mmol/L (3.3-5.1); Sodium 141 mmol/L (135-145)
--- NOTE | 2025-05-16 07:00 | CA_ITS ---
Transthoracic Echocardiogram Patient (Last, First, Middle): Lico Vanegas P Gender: Male Date of : 1950 Age: 74 Procedure Date: 05/16/2025 Procedure Type: Transthoracic Echocardiogram Location: ER Height: 180.34 cm Weight: 74.39 kg BSA: 1.94 m2 Heart Rate: 68 bpm BP: 159 / 82 mmHg Technology Recruiter: SB Referring MD: Holly Roth PA-C Symptoms: ?TIA Study Quality: Adequate w contrast ECG Rhythm: Sinus Conclusions: - Normal left ventricular size, thickness, systolic function, and wall motion. The visually estimated ejection fraction is between 60-65%. - E/E prime ratio is between 8 and 15 consistent with indeterminate filling pressures. - Normal right ventricular cavity size and systolic function. - There is mild dilatation of the sinuses of Valsalva measuring 4.40 cm. Findings Procedure Information Contrast agent, definity, is being given per protocol without apparent complications. Left Ventricle Normal left ventricular size, thickness, systolic function, and wall motion. The visually estimated ejection fraction is between 60-65%. Abnormal diastolic function is noted. Spectral Doppler is indicative of an impaired relaxation filling pattern. E/E prime ratio is between 8 and 15 consistent with indeterminate filling pressures. Right Ventricle Normal right ventricular cavity size and systolic function. Atria The left atrium is normal in size. The right atrium is normal in size. Aortic Valve Normal aortic valve structure and function. There is no aortic valve stenosis. There is no aortic valve regurgitation. Mitral Valve The mitral valve appears normal. There is trace mitral valve regurgitation. There is no mitral valve stenosis. Pulmonic Valve The pulmonic valve is likely normal. There is trace pulmonic valve regurgitation. Tricuspid Valve Normal tricuspid valve structure. There is trace tricuspid valve regurgitation. Normal right atrial pressure. There is no evidence of pulmonary hypertension. Great Vessels There is mild dilatation of the sinuses of Valsalva measuring 4.40 cm. The visualized portions of the pulmonary artery and branches are normal. Venous The inferior vena cava is normal in size and collapses greater than 50% with inspiration. Pericardium/Pleural There is no evidence of pericardial effusion. Prior Study Comparison No prior study available for comparison. Measurements 2D Linear Measurements IVSd: 0.84 0.6-0.9/0.6-1.0 cm LVIDd: 4.79 3.9-5.3/4.2-5.9 cm LVIDd Index: 2.47 2.4-3.2/2.2-3.1 cm/m2 LVIDs: 3.05 2.0-3.6 cm LVPWd: 0.94 0.7-1.1 cm LA Diam: 3.80 2.7-3.8/3.0-4.0 cm LAIDs Index: 1.96 1.5-2.3 cm/m2 LV Mass: 180.50 67-162/88-224 g LV Mass Index: 93.04 43-95/49-115 g/m2 LVOT Diam: 2.40 3.0+(-)1.3 cm 2D Systolic Function EF 4C: 62.70 >55% EF 2C: 63.60 >55% EF BiP: 62.30 >55% Mitral Valve MV Pk E: 0.57 MV PK A: 0.66 MV Decel Time: 222.00 E/A: 0.90 E'Lateral: 8.59 E'Medial: 5.66 E/E' Med: 10.10 E/E' Lat: 6.60 PHT: 65.00 MVA PHT: 3.38 Decel [place]: 2.57 Aortic Valve AoV Pk Jesse: 0.93 AoV Pk Grad: 3.00 HAILY: 4.22 LVOT LVOT Pk Jesse: 0.87 LVOT Mn Jesse: 0.58 LVOT VTI: 0.17 LVOT Pk Grad: 3.00 LVOT Mn Grad: 2.00 LVOT Diam: 2.40 LVOT Area: 4.52 Diastolic Function MV Pk E: 0.57 MV Pk A: 0.66 E/A: 0.90 E'Medial: 5.66 E/E' Med: 10.10 E' Laterial: 8.59 E/E' Lat: 6.60 Right Ventricle TAPSE (mm): 19.80 TVS' Jesse: 10.00 Tricuspid Valve TR Pk Jesse: 2.27 TR Pk Grad: 21.00 RA Press: 3.00 RVSP: 24.00 Great Vessels Aorta Sinus of Valsalva: 4.40 2.0-3.5 cm Ao Asc: 3.60 2.1-3.4 cm Ao Arch: 2.60 Pulmonary Valve PV Pk Jesse: 0.87 Peak PV Grad: 3.00 LA Pk Jesse: 1.81 Updated in Other Vendor System with Status of Final Alberto Guzmán MD electronically signed on 05/16/2025 9:51:52 PM with status of Final
[2025-05-16] MEDS: 0.9 % Sodium Chloride Flush 3 ML SYRINGE IVFLUSH (07:48)
[2025-05-16] MEDS: Aspirin Enteric Coated 81 MG TABLET.DR PO (07:48)
--- NOTE | 2025-05-16 08:01 | PC.NURSE ---
This RN resumed care of pt at 0700, PT at bedside with pt, pt able to ambulate to the bathroom independently with PT assistance. Pt neuros are intact this morning, strength equal and strong, no sensation differences, PERRLA noted, no HYDE/dizziness, no CP/SOB. Pt still fuzzy on details of yesterday at this time. Pt denies any previous history of episodes. Pt does report his mother and maternal grandfather have history of TIA and strokes. Pt only reports taking Lisinopril and omeprazole at home. Pt MRI formed completed and faxed down at this time. Pt given update on pending orders for today, vitals obtained and WNL. IV dressing and Jloop changed at this time, + blood return remains. Pt aware to call staff in to help if he needs to get up out of bed, bed alarm remains on, call aviles within reach ,urinal within reach. Pt given ear plugs at this time to help assist him with trying to get some sleep since he was unable to really sleep much last night.
--- NOTE | 2025-05-16 08:29 | PHA.MEDREC ---
Addendum entered by Jeff Rivera PharmD 05/16/25 08:32: reviewed Original Note: Pharmacy Consult ? Medication Reconciliation Pharmacy has completed the medication reconciliation. Spoke with pt and he confirmed his medications. Pt confirmed he is taking Omeprazole 20mg disintegrating tabs OTC once daily and takes Vitamin D2 tablet once a week on Mondays and took it last Friday.
--- NOTE | 2025-05-16 08:42 | PM.NEUROCN ---
History of Present Illness Data of Consult Service Date: 05/16/25 Primary Care Provider: Nabor Alonso MD [facility] Reason for consult: Confusion and amnesia 74 years old man with hypertension in usual state of felt watching a game on television when he started feeling different. He said that it was foggy and dizzy and then something happened. After that his memory was fuzzy, he could remember some like talking to someone in the ambulance. Finally, when he felt normal he was in hospital. There was no report of any seizure or focal weakness. He denied any headache. He denied taking any new medicine or chemical or alcohol. Something like this has not happened before. His initial blood pressure was high in his head CT did not reveal any acute abnormality. There was no significant metabolic abnormality to explain his situation. Now he was feeling back to normal. There was no history of any significant headaches. Review of Systems Review of Systems: No cold or flu-like illness. No head trauma. Constitutional: Constitutional: Reports as per [facility] Past Medical History Medical History HTN (hypertension) Social History Social History Smoked in Last 30 Days: No Use of substances other than those prescribed or required for medical reasons: No Advance Directives: No Advance Directives Information Provided: Yes Do you have a plan to hurt others: No Plan Meds Allergies Allergy/AdvReac Type Severity Reaction Status Date / Time Penicillins (PENICILLINS) Allergy Unknown UNKNOWN Verified 05/15/25 21:14 Active Medications: Current Medications Acetaminophen (Acetaminophen 325 Mg Tablet) 975 mg PO Q6H PRN PRN Reason: Pain, Mild 1-3,fever,headache Aspirin (Aspirin Enteric Coated 81 Mg Tablet.Dr) 81 mg PO DAILY [facility] Last Admin: 05/16/25 07:48 Dose: 81 mg Calcium Carbonate (Calcium Carbonate 750 Mg Tab.Chew) 750 mg PO Q4H PRN PRN Reason: Heartburn Enoxaparin Sodium (Enoxaparin Sodium 40 Mg/0.4 Ml Syringe) 40 mg SUBCUT Q24H [facility] Last Admin: 05/16/25 07:48 Dose: 40 mg Magnesium Hydroxide (Milk Of Magnesia 30 Ml Oral.Susp) 30 ml PO DAILY PRN PRN Reason: Constipation Melatonin (Melatonin 3 Mg Tablet) 6 mg PO BEDTIME PRN PRN Reason: Insomnia Ondansetron HCl (Ondansetron Hcl 4 Mg/2 Ml Vial) 4 mg IVPUSH Q8H PRN PRN Reason: Nausea and Vomiting Oxycodone HCl (Oxycodone Hcl Immed Release 5 Mg Tablet) 5 mg PO Q6H PRN PRN Reason: Pain, Severe (Pain Scale 7-10) Sodium Chloride (0.9 % Sodium Chloride Flush 3 Ml Syringe) 3 ml IVFLUSH QSHIFT NUVIA Last Admin: 05/16/25 07:49 Dose: Not Given Tramadol HCl (Tramadol Hcl 50 Mg Tablet) 50 mg PO Q6H PRN PRN Reason: Pain, Moderate(Pain Scale 4-6) Home Medications ?Medication ?Instructions ?Recorded ?Confirmed ?Last Taken ?Type ergocalciferol (vitamin D2) 1,250 1,250 mcg PO MO 05/16/25 05/16/25 05/09/25 History mcg (50,000 unit) capsule (Vitamin D2) lisinopril 5 mg tablet 5 mg PO DAILY 05/16/25 05/16/25 05/15/25 History omeprazole 20 mg delayed 20 mg PO DAILY@0630 05/16/25 05/16/25 05/15/25 History release,disintegrating tablet valacyclovir 1 gram tablet 1,000 mg PO BID PRN Outbreaks 05/16/25 05/16/25 Unknown History Physical Exam Vital Signs: Vital Signs: Last Vital Signs Temp 98.6 F 05/16/25 07:40 Pulse 109 H 05/16/25 07:40 Resp 18 05/16/25 07:40 BP 136/79 05/16/25 07:40 Pulse Ox 98 05/16/25 07:40 O2 Del Method Room Air 05/16/25 07:40 BMI result Body Mass Index 22.9 Neuro: Other: Mental Status: Alert and oriented to person, place, and time. Normal attention. Normal spontaneous speech, fluency, and comprehension. No obvious issues with mood and memory. Affect is appropriate. Cranial Nerves: CN II: Visual crespo full to confrontation, visual acuity intact. CN III, IV, : Pupils equal, round, reactive to light and accommodation. Extraocular movements are normal. CN V: Facial sensation is normal. CN VII: Facial movements symmetrical. CN VIII: Hearing intact to bedside conversation is normal. CN IX, X: Palate elevates symmetrically. CN XI: Shoulder shrug and head turn symmetrical. CN XII: Tongue midline without atrophy or fasciculations. Motor: Bulk and tone normal in all extremities. No significant muscle weakness in arms and legs. No drift. Reflexes: Deep tendon reflexes 2+ and symmetric. Plantar response down-going bilaterally. Coordination: [id number] and [id number]-[id number] testing normal. No dysmetria. Extrapyramidal: Full facial expressions and blinking. No rigidity. Movements are appropriate with no tremor or abnormality. Speech: Normal; no dysarthria or tremor. Results Labs 05/16/25 03:31 05/16/25 03:31 Labs: Short CBC 05/15/25 05/16/25 Range/Units 20:55 03:31 WBC 8.5 6.2 (4.8-10.8) X10*3/uL Hgb 14.2 13.1 L (14.0-18.0) g/dl Hct 40.7 L 38.1 L (42.0-52.0) % Plt Count 209 202 (160-400) X10*3/uL BMP 05/15/25 05/16/25 20:55 03:31 Sodium 140 141 Potassium 4.1 4.2 Chloride 111 H 110 H Carbon Dioxide 19 L 24 BUN 23 H 19 H Creatinine 1.16 1.00 Calcium 8.9 8.7 Urine 05/15/25 Range/Units 22:40 Urine Color Yellow Urine Appearance Clear Urine pH 5.5 (5.0-9.0) Ur Specific [place] 1.010 (1.005-1.025) Urine Protein Negative (Neg-Trace) mg/dL CT head without contrast Comparison: None provided Findings: No intra-axial mass, midline shift, hydrocephalus, or acute hemorrhage. Parenchymal atrophy, white matter disease, and chronic appearing left thalamic lacunar infarct. There is no sinus or mastoid fluid. The orbits are within normal limits. No skull fracture. Leftward nasal septum deviation. IMPRESSION: 1. No acute intracranial findingsUrine Glucose (UA) Negative (Negative) mg/dL Assessment and Plan (1) Transient global amnesia: Status: Acute 74 years old man with uncontrolled hypertension with head CT revealing mild chronic microvascular ischemic changes had an episode of confusion and amnesia suggestive of the diagnosis of transient global amnesia. My recommendation is a noncontrast MRI of brain to look at his temporal lobes, and an EEG. Anti-platelet agent like baby aspirin daily, statin, and blood pressure management is recommended. Procedures Date of Service Date of Service: 05/16/25
--- NOTE | 2025-05-16 10:08 | PC.NURSE ---
Pt currently in MRI, Melissa made aware of metal in pt chest, Xray obtained which does confirm there is metal there, during magnate test the metal does pull, pt will not be able to receive MRI at this time.
--- NOTE | 2025-05-16 12:24 | MHC.CM.PN ---
05/16/25 Raquel, Pt. lives with his , PCP confirmed: Nabor Alonso MD. HCP form to be completed here at added to his chart. Pt. does not use home health services or DME. to transport him home at DC, DCP: home, self care, CM to follow for DC needs.
--- NOTE | 2025-05-16 16:10 | MHC.STROKE ---
Met with patient in ED bed 8 Pt awake alert and oriented x 4. Pt had just completed bedside ECHO. No deficits noted. Pt awake, alert, oriented and engaged in conversation appropriately. No focal deficits. Stroke Education provided to patient. Pamphlet given. We discussed patient's medical history, medications, diet, activity, and social hx. We discussed his extensive family history. All questions answered. Will continue to assist as needed.
--- NOTE | 2025-05-16 16:34 | P.PNIM_ITS ---
Subjective Subjective Date of Service: 05/16/25 Interval History: Reports does not remember much about incident that brought him to the hospital States he felt ?disoriented? in the ambulance ride was a ?blur? Reports family hx of stroke, denies any previous personal CVA Reports thinking is much clearer, and no longer feels ?spaced out Denies headache, vision changes, nor hemiparesis Has a fragment of a railroad spike in his chest from 1977 Review of Systems Review of Systems: Yes all other systems are reviewed and are negative Physical Exam 2 Exam: Exam: General: AOx3, no acute distress Resp: CTA bilaterally CVS: S1, S2, RRR GI: +BS, NT, no distention Skin: Warm, dry Neuro: Cranial nerves II-XII grossly intact bilaterally. Motor grossly intact bilaterally. No focus deficits noted. No facial droop noted. Negative pronator drift. Sensation to light touch intact. Strength symmetric and full. Extremities: No edema Psych: Appropriate affect Vital Signs: Vital Signs: Last Vital Signs Temp 98.5 F 05/16/25 16:14 Pulse 93 05/16/25 16:14 Resp 16 05/16/25 16:14 BP 159/82 H 05/16/25 16:14 Pulse Ox 96 05/16/25 16:14 O2 Del Method Room Air 05/16/25 16:14 BMI result Body Mass Index 22.9 Objective Data Active Medications Acetaminophen (Acetaminophen 325 Mg Tablet) 975 mg PO Q6H PRN PRN Reason: Pain, Mild 1-3,fever,headache Aspirin (Aspirin Enteric Coated 81 Mg Tablet.Dr) 81 mg PO DAILY [facility] Last Admin: 05/16/25 07:48 Dose: 81 mg Documented By: RUDOLPH Calcium Carbonate (Calcium Carbonate 750 Mg Tab.Chew) 750 mg PO Q4H PRN PRN Reason: Heartburn Enoxaparin Sodium (Enoxaparin Sodium 40 Mg/0.4 Ml Syringe) 40 mg SUBCUT Q24H [facility] Last Admin: 05/16/25 07:48 Dose: 40 mg Documented By: RUDOLPH Magnesium Hydroxide (Milk Of Magnesia 30 Ml Oral.Susp) 30 ml PO DAILY PRN PRN Reason: Constipation Melatonin (Melatonin 3 Mg Tablet) 6 mg PO BEDTIME PRN PRN Reason: Insomnia Ondansetron HCl (Ondansetron Hcl 4 Mg/2 Ml Vial) 4 mg IVPUSH Q8H PRN PRN Reason: Nausea and Vomiting Oxycodone HCl (Oxycodone Hcl Immed Release 5 Mg Tablet) 5 mg PO Q6H PRN PRN Reason: Pain, Severe (Pain Scale 7-10) Sodium Chloride (0.9 % Sodium Chloride Flush 3 Ml Syringe) 3 ml IVFLUSH QSHIFT NUVIA Last Admin: 05/16/25 16:16 Dose: Not Given Documented By: DOMI Non-Admin Reason: Previously Administered Tramadol HCl (Tramadol Hcl 50 Mg Tablet) 50 mg PO Q6H PRN PRN Reason: Pain, Moderate(Pain Scale 4-6) Labs 05/16/25 03:31 05/16/25 03:31 Labs: Laboratory Results - last 24 hr 05/15/25 05/15/25 05/15/25 20:55 20:56 21:30 MCV 87.2 MCH 30.4 MCHC 34.9 RDW 12.5 Plt Count 209 MPV 9.6 Immature Gran % (Auto) 0.2 Neut % (Auto) 80.5 H Lymph % (Auto) 13.4 L [place] % (Auto) 5.3 Eos % (Auto) 0.2 Baso % (Auto) 0.4 Lymph # (Auto) 1.1 L [place] # (Auto) 0.5 Eos # (Auto) 0.0 Baso # (Auto) 0.0 Abs Immat Gran (auto) 0.02 Absolute Neuts (auto) 6.9 Absolute Nucleated RBC 0.000 Nucleated RBC % (auto) 0.0 PT 11.8 INR 1.0 Anion Gap 14 Estim Creat Clear Calc 60.6 Estimated GFR > 60 POC Glucose 100 Random Glucose 107 Calcium 8.9 Troponin I High Sens < 2.7 Triglycerides 68 Cholesterol 186 LDL Cholesterol, Calc 119 H HDL Cholesterol 54 Urine Color Urine Appearance Urine pH Ur Specific [place] Urine Protein Urine Glucose (UA) Urine Ketones Urine Blood Urine Nitrite Ur Leukocyte Esterase Urine Opiates Screen Ur Buprenorphine Scrn Ur Oxycodone Screen Urine Methadone Screen Urine Fentanyl Screen Ur Barbiturates Screen Ur Phencyclidine Scrn Ur Amphetamines Screen U Benzodiazepines Scrn Urine Cocaine Screen U Marijuana (THC) Screen Ethyl Alcohol < 10 05/15/25 05/16/25 22:40 03:31 MCV 87.0 MCH 29.9 MCHC 34.4 RDW 12.5 Plt Count 202 MPV 9.5 Immature Gran % (Auto) 0.3 Neut % (Auto) 68.1 Lymph % (Auto) 23.3 [place] % (Auto) 7.0 Eos % (Auto) 1.0 Baso % (Auto) 0.3 Lymph # (Auto) 1.4 [place] # (Auto) 0.4 Eos # (Auto) 0.1 Baso # (Auto) 0.0 Abs Immat Gran (auto) 0.02 Absolute Neuts (auto) 4.2 Absolute Nucleated RBC 0.000 Nucleated RBC % (auto) 0.0 PT INR Anion Gap 11 L Estim Creat Clear Calc 70.3 Estimated GFR > 60 POC Glucose Random Glucose 90 Calcium 8.7 Troponin I High Sens Triglycerides Cholesterol LDL Cholesterol, Calc HDL Cholesterol Urine Color Yellow Urine Appearance Clear Urine pH 5.5 Ur Specific [place] 1.010 Urine Protein Negative Urine Glucose (UA) Negative Urine Ketones 15 Urine Blood Negative Urine Nitrite Negative Ur Leukocyte Esterase Negative Urine Opiates Screen Not Detected Ur Buprenorphine Scrn Not Detected Ur Oxycodone Screen Not Detected Urine Methadone Screen Not Detected Urine Fentanyl Screen Not Detected Ur Barbiturates Screen Not Detected Ur Phencyclidine Scrn Not Detected Ur Amphetamines Screen Not Detected U Benzodiazepines Scrn Not Detected Urine Cocaine Screen Not Detected U Marijuana (THC) Screen Not Detected Ethyl Alcohol Assessment and Plan (1) Acute encephalopathy: Status: Acute Plan Pt is a 74 yo male with a pmhx significant for HTN on lisinopril, who presented to the ED for difficulty thinking after experiencing amnesia. Transient global amnesia versus TIA versus CVA versus seizure CT negative for acute findings, though showed chronic left thalamic lacunar infarct Pt unable to get MRI due to railroad spike fragment in his chest since 1977 Check echocardiogram, carotid ultrasound, EEG Aspirin, statin Neurology consult Monitor on telemetry HTN Continue lisinopril GERD PPI med rec pending full code VTE prophy: lovenox Pt requires continued hospitalization for additional workup including EEG and echocardiogram, as well as awaiting mentation back to baseline. Quality Stroke Does the patient have a stroke diagnosis?: No VTE Prior VTE?: No VTE Risk Level:: Medical - moderate - high VTE Device Contraindication: Treatment Not Indicated VTE Drug Contraindication: N/A - Med Ordered
--- NOTE | 2025-05-16 18:01 | HO.NURTONUR ---
74 year old male presented Friday for concerns of confusion and memory loss. Was watching football alone at home and became confused and then called EMS himself. On arrival, treated as stroke alert. Imaging up to this point was all negative, head CT/EEG/CXR. Unable to have MRI due to residual piece of metal in chest from 40 years ago. Pt awake and alert, neurologically intact. Vitals stable. Tolerating regular diet. PIV in place. In hospital bed.
[2025-05-16 21:58] LABS: INR Whole Blood 1.0 (0.9-1.1); Prothrombin Time Whole Blood 12.3 sec (11.1-13.5)
[2025-05-17 03:26] VITALS: BP 149/75; PULSE 60; RESP 16; TEMP 36.5; O2SAT 96
[2025-05-17 07:30] LABS: MANUAL DIFF FLAG NO
[2025-05-17 07:36] LABS: Hematocrit 40.9 % (42.0-52.0); Hemoglobin 14.1 g/dl (14.0-18.0); Imm Gran Abs Auto 0.02 X10*3/uL (0.00-0.03); Imm Gran Pct Auto 0.4 % (0.0-0.4); Lymphocytes Absolute Auto 1.1 X10*3/uL (1.2-4.9); Mean Corpuscular HGB Conc 34.5 g/dl (31.0-36.0); Mean Corpuscular Hemoglobin 30.3 pg (27.0-33.0); Mean Corpuscular Volume 87.8 fL (80.0-98.0); NRBC Abs Auto 0.000 X10*3/uL (0.0-0.012); NRBC Pct Auto 0.0 /100WBC (0.0-0.2); Platelet Count 200 X10*3/uL (160-400); Red Blood Count 4.66 X10*6/uL (4.60-5.80); White Blood Count 5.7 X10*3/uL (4.8-10.8)
[2025-05-17 07:43] VITALS: BP 138/75; PULSE 63; RESP 18; TEMP 36.9; O2SAT 94
[2025-05-17 07:56] LABS: Anion Gap 11 (12-20); Blood Urea Nitrogen 22 mg/dL (9-16); Calcium 9.0 mg/dL (8.4-10.2); Carbon Dioxide 28 mmol/L (22-29); Chloride 107 mmol/L (96-108); Creatinine Clr Calc Pharmacy 60.7; Estimated Glomerular Filt Rate > 60; Potassium 4.6 mmol/L (3.3-5.1); Sodium 141 mmol/L (135-145)
[2025-05-17] MEDS: Aspirin Enteric Coated 81 MG TABLET.DR PO (08:41)
[2025-05-17] MEDS: 0.9 % Sodium Chloride Flush 3 ML SYRINGE IVFLUSH (08:42)
[2025-05-17] MEDS: Flu Vacc TS2025-26(6mo up)/PF 0.5 ML SYRINGE IM (08:42)
[2025-05-17 11:17] VITALS: BP 139/75; PULSE 65; RESP 18; TEMP 36.6; O2SAT 96
--- NOTE | 2025-05-17 12:02 | MHC.CM.PN ---
Pt. completed HCP form, naming his Su, copies given to him, form uploaded to chart.
--- NOTE | 2025-05-17 13:35 | P.DS_ITS ---
DS: Providers Provider Date of Service: 05/17/25 Date of admission: 05/15/25 23:37 Date of discharge: 05/17/25 Primary care physician: Nabor Alonso MD Consults: 05/15/25 23:19 Consult to Neurology Routine Consulting Provider: [facility] Reason for consultation: ?transient global amnesia Has provider been notified: No 05/16/25 00:05 Consult to Neurology Routine Consulting Provider: [facility] Reason for consultation: ?transient global amnesia vs TIA vs CVA Has provider been notified: No DS: Diagnosis Discharge Diagnosis (1) Acute encephalopathy: Status: Acute DS: Summary Hospital Course Hospital Course: From admission HPI: Date of Service: 05/15/25 Attending physician on admission: Jeane Donald Chief Complaint: amnesia Pt is a 74 yo male with a pmhx significant for HTN on lisinopril, who presented to the ED for an unknown reason. the pt reports that he was stressed watching football game and suddenly felt like something was wrong blood can not describe what it was. He denies any chest pain, shortness of breath, nausea, vomiting, headache, weakness, fever, chills, urinary symptoms or abdominal symptoms. When EMS arrived his blood pressure was slightly elevated and he was repetitive and forgetful. The patient remains forgetful and repetitive. The patient's reports that he is talking much more quickly than usual but does not have any slurred speech. She also reported that he has a history of crack cocaine use, none recently to her knowledge. He also drinks alcohol occasionally but has not consumed any today. His mother and brother have a strong history of TIAs and CVAs, both passed after CVAs. Hospital course Pt was admitted to the hospital after presenting to the ED with an episode of sudden onset amnesia, disorientation, and difficulty thinking. Given family hx of stroke, concern was for her transient global amnesia vs TIA vs CVA. CTA of head was negative for an acute stroke, but showed a chronic left thalamic lacunar infarct. Pt was unable to undergo an MRI due to a having a fragment from a railroad spike still embedded in his chest from a work-related accident in 1977. He did undergo additional imaging with a carotid ultrasound which showed bilateral stenosis with an irregularly shaped moderate right-sided plaque and a small left-sided plaque. Echocardiogram was overall unremarkable and showed normal left ventricular size, thickness, and systolic function with preserved ejection fraction. Pt also underwent an EEG which was essentially normal and without any evidence of epileptic discharges. Given negative workup for acute stroke, pt's symptoms likely secondary to an episode of transient global amnesia, though TIA can not be completely excluded. At time of discharge pt was back to baseline with mentation, and has been cleared for discharge home without services by PT/OT. He was discharged on aspirin 81mg daily and atorvastatin 40 mg daily at bedtime. He should follow up with Dr. Dean in Neurology for transient global amnesia and hx of CVA, Dr. Marie in vascular surgery for carotid artery stenosis, and with PCP in 1 week for routine post h ospitalization visit. Pt should continue all of his other home medications. Time Attestation Discharge Coordination Time (in mins): 37 Quality: Safe Use of Opioids Does Pt have an Active Cancer Diagnosis on the Problem List?: No Quality: Stroke Does the patient have a stroke diagnosis?: No Physical Exam Exam: Exam: General: AOx3, no acute distress Resp: CTA bilaterally CVS: S1, S2, RRR GI: +BS, NT, no distention Skin: Warm, dry Neuro: Cranial nerves II-XII grossly intact bilaterally. Motor grossly intact bilaterally. No focus deficits noted. Mentation appears back to baseline Extremities: No edema Psych: Appropriate affect Vital Signs: Vital Signs: Last Vital Signs Temp 97.9 F 05/17/25 11:17 Pulse 65 05/17/25 11:17 Resp 18 05/17/25 11:17 BP 139/75 05/17/25 11:17 Pulse Ox 96 05/17/25 11:17 O2 Del Method Room Air 05/17/25 11:17 BMI result Body Mass Index 22.8 DS: Data Data Completed and Pending Labs on day of discharge: Laboratory Results - last 24 hr 05/15/25 05/17/25 21:58 07:28 WBC 5.7 RBC 4.66 Hgb 14.1 Hct 40.9 L MCV 87.8 MCH 30.3 MCHC 34.5 RDW 12.6 Plt Count 200 MPV 9.5 Immature Gran % (Auto) 0.4 Neut % (Auto) 69.9 Lymph % (Auto) 19.2 L [place] % (Auto) 7.2 Eos % (Auto) 2.6 Baso % (Auto) 0.7 Lymph # (Auto) 1.1 L [place] # (Auto) 0.4 Eos # (Auto) 0.2 Baso # (Auto) 0.0 Abs Immat Gran (auto) 0.02 Absolute Neuts (auto) 4.0 Absolute Nucleated RBC 0.000 Nucleated RBC % (auto) 0.0 PT (Fingerstick) 12.3 INR (Fingerstick) 1.0 Sodium 141 Potassium 4.6 Chloride 107 Carbon Dioxide 28 Anion Gap 11 L BUN 22 H Creatinine 1.15 Estim Creat Clear Calc 60.7 Estimated GFR > 60 Random Glucose 88 Calcium 9.0 Discharge Plan Discharge Anticipated Discharge Date/Time: 05/17/25 13:10 Patient Disposition: Home, Self-Care Referrals: Nabor Alonso MD [Primary Care Provider, Medical] - 1 Week Ana Dean MD [Physician, Neurology] - 1 Week Referral Note: F/U for transient global amnesia; pt with chronic infarct on CT of head Jeovanny Marie MD [Physician, Vascular Surgery] - 1 Week Referral Note: F/U for BI carotid stenosis, right with irregularly shaped moderate plaque. Discharge Medications: New atorvastatin [Lipitor] 40 mg tablet 40 mg PO BEDTIME Qty: 90 0RF Rx Instructions: Take one tablet daily at bedtime aspirin 81 mg tablet 81 mg PO DAILY Qty: 90 0RF Rx Instructions: Take one tablet daily Continued valacyclovir 1 gram tablet 1,000 mg PO BID PRN (Reason: Outbreaks) lisinopril 5 mg tablet 5 mg PO DAILY ergocalciferol (vitamin D2) [Vitamin D2] 1,250 mcg (50,000 unit) capsule 1,250 mcg PO MO omeprazole 20 mg Tablet,Disintegrat, Delay Rel 20 mg PO DAILY@0630 Discharge Orders: Discharge Order (Routine); Ordered 05/17/25 Ordered By: Camacho Mantilla Activity on Discharge: As tolerated Stand Alone Forms: Patient Portal Discharge page Print Language: Polish Care Plan Goals: See below Health Concerns: Transient global amnesia TIA CVA Atherosclerotic disease Carotid stenosis Plan of Treatment: You were admitted to the hospital after presenting to the ED with an episode of sudden onset amnesia, disorientation, and difficulty thinking. Given family hx of stroke, concern was for her transient global amnesia vs TIA vs CVA. CTA of head was negative for an acute stroke, but showed a chronic left thalamic lacunar infarct. You were unable to undergo an MRI due to a having a fragment from a railroad spike still embedded in your chest from an accident in 1977. Additional imaging included carotid ultrasound which showed bilateral stenosis with N irregularly shaped moderate right-sided plaque and a small left-sided plaque. Echocardiogram was overall unremarkable and showed normal left dang tricular size, thickness, and systolic function with preserved ejection fraction. You also underwent an EEG which was essentially normal and without any evidence of epileptic discharges. Given negative workup for acute stroke, you likely suffered an episode of transient global amnesia, though TIA can not be completely excluded. You are now back to baseline with mentation, and has been cleared for discharge home without services by PT/OT. -- for atherosclerotic disease/carotid stenosis/old stroke, you will be started on aspirin 81 mg daily and atorvastatin 40 mg daily at bedtime -- follow up with Dr. Dean in Neurology for transient global amnesia and hx of CVA -- follow up with Dr. Marie in vascular surgery for carotid artery stenosis -- follow up with PCP in 1 week for routine post hospitalization visit Assessment: See discharge summary Patient Instructions: Transient Ischemic Attack (DC), Stroke (DC), Transient Global Amnesia (GEN) Discharge Date/Time: 05/17/25 15:09
--- NOTE | 2025-05-17 13:48 | MHC.CM.PN ---
Pt. has been medically cleared to [place], he will go home via private transport, plan is self care.
== END 2025-05-17 15:09 | disposition home or self-care (01) ==
LOC: HO.ED 23:14 → HO.EDOVER 23:41 → HO.IMC 05-16 19:42
PROVIDERS: Admitting Provider Physician Assistant; Emergency Provider Emergency Medicine; PCP Internal Medicine; Visit Provider Student in an Organized Health Care Education/Training Program
DX: G93.40 Encephalopathy, unspecified (principal); G45.4 Transient global amnesia; R41.0 Disorientation, unspecified; I10 Essential (primary) hypertension; K21.9 Gastro-esophageal reflux disease without esophagitis; Z82.3 Family history of stroke; Z23 Encounter for immunization; Z79.899 Other long term (current) drug therapy
CPT/HCPCS: 36415; 70450; 71045; 80048; 80061; 80307; 81003; 82947; 84484; 85025; 85610; 90471; 90656; 93005; 93306; 93880; 95816; 96360; 96361; 96372; 97161; 97165; 99222; 99285; J1650; J7120; Q9957

== ENCOUNTER → 2025-05-15 20:58 | Outpatient (BNV) | payer MEDICARE, SELFPAY | PROVIDERS: Admitting Provider Physician Assistant; Emergency Provider Emergency Medicine; PCP Internal Medicine; Visit Provider Internal Medicine Cardiovascular Disease | DX: I44.0 Atrioventricular block, first degree (principal); I49.3 Ventricular premature depolarization; I45.10 Unspecified right bundle-branch block | CPT/HCPCS: 93010 ==

== ENCOUNTER 2025-05-15 23:37 | Outpatient (BNV) | payer MEDICARE, SELFPAY | END 2025-05-16 08:44 | PROVIDERS: Admitting Provider Physician Assistant; Emergency Provider Emergency Medicine; PCP Internal Medicine; Visit Provider Radiology Diagnostic Radiology | DX: Z13.6 Encounter for screening for cardiovascular disorders (principal) | CPT/HCPCS: 71045 ==

== ENCOUNTER 2025-05-15 23:37 | Outpatient (BNV) | payer MEDICARE, SELFPAY | END 2025-05-16 12:50 | PROVIDERS: Admitting Provider Physician Assistant; Emergency Provider Emergency Medicine; PCP Internal Medicine; Visit Provider Psychiatry & Neurology Neurology | DX: R41.3 Other amnesia (principal) | CPT/HCPCS: 95816 ==

== ENCOUNTER 2025-05-15 23:37 | Outpatient (BNV) | payer MEDICARE, SELFPAY | END 2025-05-16 07:00 | PROVIDERS: Admitting Provider Physician Assistant; Emergency Provider Emergency Medicine; PCP Internal Medicine; Visit Provider Internal Medicine Cardiovascular Disease | DX: I51.89 Other ill-defined heart diseases (principal) | CPT/HCPCS: 93306 ==

== ENCOUNTER → 2025-05-15 23:37 | Outpatient (BNV) | payer MEDICARE, SELFPAY | PROVIDERS: Admitting Provider Physician Assistant; Emergency Provider Emergency Medicine; PCP Internal Medicine; Visit Provider Psychiatry & Neurology Neurology | DX: G45.4 Transient global amnesia (principal) | CPT/HCPCS: 99222 ==

== ENCOUNTER → 2025-05-15 23:37 | Outpatient (BNV) | payer MEDICARE, SELFPAY | PROVIDERS: Admitting Provider Physician Assistant; Emergency Provider Emergency Medicine; PCP Internal Medicine; Visit Provider Student in an Organized Health Care Education/Training Program | DX: G93.40 Encephalopathy, unspecified (principal) | CPT/HCPCS: 99233 ==

== ENCOUNTER 2025-06-30 10:13 | Outpatient (AMB) | payer MEDICARE, SELFPAY ==
--- NOTE | 2025-06-30 10:30 | A.OFFVIS_ITS ---
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 He went to the emergency room on May 16 or after experiencing a sudden onset of symptoms while watching television, which he described as feeling as if he were drunk, although he had not consumed alcohol or used drugs. Concerned about a stroke due to a family history, he called for an ambulance and was diagnosed with transient global amnesia in the ER. 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 A neck ultrasound revealed irregular-shaped plaque on the right side, described as having a coral reefing appearance. The patient's medications include a statin, low-dose aspirin, and lisinopril, which was recently increased to 10 mg. He has a history of chronic kidney disease with a reported near normal function, which is being managed by a software security consultant and is said to be improving. He quit smoking 30 years ago, having previously smoked 8-10 cigarettes per day. He denies a history of diabetes. He now presents for evaluation with ultrasound [facility] Medical History HTN (hypertension) Social History Household Members: Spouse Housing: House Do you presently have visiting nurse or other home services: No Patient Tobacco Use Status: Never used Tobacco service: No Review of Systems Const All systems reviewed & are unremarkable except as noted in HPI and below Reports no additional complaints ENT Reports Normal hearing present Card Denies chest pain, Denies chest pain at rest, Denies chest pain with activity and Denies pedal edema Resp Denies cough GI Denies abdominal pain Musc Denies abnormal gait, Denies muscle cramps and Denies radiating pain into limb Skin/Breast Denies skin ulcer and Denies wounds Neuro Reports Normal hearing present and Denies abnormal gait Psych Reports no additional complaints Physical Exam Const General: cooperative, healthy appearing and comfortable Orientation/consciousness: oriented to person, oriented to place and oriented to time HEENT Head: Yes normal to inspection Neck Neck: Yes normal visual inspection Carotids: no bruits Chest Chest palpation & inspection: normal inspection of the chest Resp Effort & Inspection: normal respiratory effort and able to speak in complete sentences Auscultation: clear to auscultation bilaterally, no crackles, no rales, no rhonchi and no wheezes Cardio Rate: regular rate Rhythm: regular rhythm Heart sounds: S1 normal heart sound present and S2 normal heart sound present Bruits: no carotid bruits Peripheral pulses: Peripheral pulses 2+ throughout GI Inspection: Yes normal to inspection Skin Wounds: no wounds Hair: normal Neuro General: oriented to person, oriented to place and oriented to time Cranial nerves: Yes CN's II-XII intact bilaterally and Yes Normal hearing present Cognition (Neuro): normal cognition Motor exam (neuro): 5/5 motor strength present throughout Extrem Other: venous exam: No significant superficial varicosities or spider telangiectasias, minimal edema General: No clubbing, No cyanosis and No edema Psych Appearance: grossly normal Mental Status: mental status grossly normal Speech and movement: Normal speech and movement present Results Reviewed Results Reviewed: Carotid ultrasound dated 05/15/2025 demonstrates bilateral 0-49% stenosis with irregular plaque on the right side. Assessment & Plan Assessment & Plan (1) Bilateral carotid artery stenosis: Code(s): I65.23 - Occlusion and stenosis of bilateral carotid arteries Category: Medical Plan: I informed the patient that his neck ultrasound was largely within normal limits for his age, but it did show that the plaque on the right side has an irregular, coral reefing shape. I explained that this type of plaque makes us a little more nervous about the possibility of a piece breaking off and causing a stroke. I reviewed the potential symptoms of a stroke originating from the right carotid artery, which include right-sided vision loss, garbled speech, and weakness or numbness in the left arm and leg. I have taken the liberty of ordering CT angiogram to better elucidate the true degree of stenosis and the plaque morphology. Thank you for allowing us to assist in this patient's care. If there are any questions or concerns please do not hesitate to contact us. Plan Patient was informed and verbally consented to the use of an ambient scribe for clinic note documentation during this visit. Orders: Orders Creatinine Today I65.23 - Occlusion and stenosis of bilateral carotid arteries Blood Urea Nitrogen Today I65.23 - Occlusion and stenosis of bilateral carotid arteries CT angio neck Today I65.23 - Occlusion and stenosis of bilateral carotid arteries Patient Instructions: - We are ordering a CT scan of your neck to get a better look at the plaque buildup in your artery. - Before the CT scan, you will need to get blood work done to check your kidney function. - Continue taking your current medications, including your statin, low-dose aspirin, and lisinopril. - It is important to watch for any signs of a stroke. Seek emergency medical attention immediately if you experience any sudden vision loss in your right eye, garbled speech, or weakness or numbness in your left arm or leg. - Continue your follow-up care with your kidney doctor. Coding Level of Care Code New Pt Level 4 (13353) Diagnoses Bilateral carotid artery stenosis I65.23
--- OUTSIDE RECORDS SUMMARY | 2025-06-30 12:32 | XMS_ITS | Encounter Summary ---
Author Organization [facility] Address [address] [place] [address] Phone Care Team Providers Care Manometer Technician Name Role Phone Nabor Alonso MD Primary Care Provider [phone] Encounter Details Date Type Department Care Team (Late Contact Info) Description 10/04/2024 Documentation Only [facility] [address] [place] [address] Elyssa Bolivar [address] [place] [phone] Social History Tobacco Use Types Packs/Day [...] Office Visit [facility] [address] [address] Jose Dickinson MD [address] [place] [address] [place] [address] documented as of this encounter Visit Diagnoses Not on filedocumented in this encounter Care Teams Manometer Technician Relationship Specialty Start Date End Date Nabor Alonso MD [employer] BRICK [address] [place] [address] PCP - General 05/18/19 documented as of this encounter
--- OUTSIDE RECORDS SUMMARY | 2025-06-30 12:32 | XMS_ITS | Encounter Summary ---
Author Organization [facility] Address [address] [place] [address] Phone Care Team Providers Care Care Advocate Name Role Phone Nabor Alonso MD Primary Care Provider [phone] Encounter Details Date Type Department Care Team (Late Contact Info) Description 10/04/2024 Documentation Only [facility] [address] [place] [address] Elyssa Bolivar [address] [place] [phone] Social History Tobacco Use Types Packs/Day [...] Office Visit [facility] [address] [address] Jose Dickinson MD [address] [place] [address] [place] [address] documented as of this encounter Visit Diagnoses Not on filedocumented in this encounter Care Teams Care Advocate Relationship Specialty Start Date End Date Nabor Alonso MD [employer] C[employer] [address] [place] [address] PCP - General 05/18/19 documented as of this encounter
--- OUTSIDE RECORDS SUMMARY | 2025-06-30 12:32 | XMS_ITS | Encounter Summary ---
Author Organization [facility] Address [address] [place] [address] Phone Care Team Providers Care Section Leader And Machine Setter Name Role Phone Nabor Alonso MD Primary Care Provider [phone] Encounter Details Date Type Department Care Team (Late Contact Info) Description 10/04/2024 Documentation Only [facility] [address] [place] [address] Elyssa Bolivar [address] [place] [phone] Social History Tobacco Use Types Packs/Day [...] Visit [facility] [address] [address] Jose Dickinson MD [address] [place] [address] [place] [address] documented as of this encounter Visit Diagnoses Not on filedocumented in this encounter Care Teams Section Leader And Machine Setter Relationship Specialty Start Date End Date Nabor Alonso MD [employer] LE[employer]ING AGENT [address] [place] [address] PCP - General 05/18/19 documented as of this encounter
== END 2025-06-30 11:26 | disposition home or self-care (01) ==
LOC: HO.HVS 10:13
PROVIDERS: PCP Internal Medicine; Visit Provider Surgery Vascular Surgery
DX: I65.23 Occlusion and stenosis of bilateral carotid arteries (principal)
CPT/HCPCS: 99204

== ENCOUNTER → 2025-06-30 10:13 | Outpatient (BNVA) | payer MEDICARE, SELFPAY | PROVIDERS: PCP Internal Medicine; Visit Provider Surgery Vascular Surgery | DX: I65.23 Occlusion and stenosis of bilateral carotid arteries (principal); I10 Essential (primary) hypertension; Z09 Encounter for follow-up examination after completed treatment for conditions other than malignant neoplasm | CPT/HCPCS: 99202 ==